=== PATIENT | female | born 2000 | race Caucasian/White ===

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

== ENCOUNTER 2022-07-18 00:51 | Observation (INO) ==
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
[2022-07-18] MEDS ORDERED: ACETAMINOPHEN 1,000 MG/100 ML BAG IV ONE (01:40)
[2022-07-18] MEDS ORDERED: SODIUM CHLORIDE 1,000 ML IV STA (01:41)
[2022-07-18 02:50] LABS: ALANINE AMINOTRANSFERASE 18.6 U/L (0-35); ALBUMIN 4.12 g/dL (3.5-5.0); ALKALINE PHOSPHATASE 115.3 U/L (38-126); ASPARTATE AMINO TRANSFERASE 17.5 U/L (14-36); BILIRUBIN,TOTAL 1.16 mg/dL (0.2-1.3); BLOOD UREA NITROGEN 11.3 mg/dL (7-17); CALCIUM 9.13 mg/dL (8.4-10.2); CARBON DIOXIDE 20.5 mmol/L (22-30.0); CREATININE 0.63 mg/dL (0.60-1.30); GLUCOSE 103.3 mg/dL (74-106); POTASSIUM 3.6 mmol/L (3.5-5.1); SODIUM 132.2 mmol/L (134.5-145); TOTAL PROTEIN 6.86 g/dL (6.3-8.2)
[2022-07-18 02:51] LABS: HEMATOCRIT 33.5 % (37.0-47.0); HEMOGLOBIN 11.5 g/dl (12.0-16.0); MEAN CORPUSCULAR HEMOGLOBIN 30.8 pg (27.0-31.0); MEAN CORPUSCULAR HGB CONC 34.3 (31.8-35.4); MEAN CORPUSCULAR VOLUME 89.8 fl (81.0-99.0); PLATELET COUNT 168 10^3/uL (140-440); RED BLOOD COUNT 3.73 10^6/ul (4.20-5.40)
[2022-07-18 03:27] LABS: MOLECULAR FLU A NEGATIVE BY NAAT (NEGATIVE); MOLECULAR FLU B NEGATIVE BY NAAT (NEGATIVE)
[2022-07-18 03:27] LABS: BILIRUBIN,URINE 1+ (NEGATIVE); CLARITY,URINE Clear (CLEAR); COLOR,URINE Yellow (YELLOW); GLUCOSE, URINE (UA) Negative (NEGATIVE); KETONES,URINE 3+ (NEGATIVE); LEUKOCYTE ESTERASE ,URINE Negative (NEGATIVE); NITRITE,URINE Negative (NEGATIVE); PH,URINE 5.5 (5-9); PROTEIN,URINE 1+ (NEGATIVE); URINE, BLOOD 2+ (NEGATIVE); UROBILINOGEN,URINE 0.2 (0.2)
[2022-07-18 03:37] LABS: URINE PREGNANCY TEST NEGATIVE (NEGATIVE)
[2022-07-18 03:37] LABS: SARS COV-2 RNA RAPID NAAT NEGATIVE (NEGATIVE)
[2022-07-18 03:54] LABS: PROTHROMBIN TIME 37.5 SEC (9.3-11.0)
[2022-07-18 03:59] LABS: BACTERIA,URINE 2+ (NOT PRESENT); MUCUS,URINE 4+ (NOT PRESENT); SQUAMOUS EPITHELIAL CELL,UR 20-30 (0-5); TRICHOMONAS,URINE MODERATE (NOT PRESENT)
[2022-07-18 04:01] LABS: ERYTHROCYTE SEDIMENTATION RATE 30 mm/hr (0-20)
[2022-07-18] MEDS ORDERED: MAXIPIME 2 GM/50 ML D5W 2 GM/50 ML BAG IV ONE (04:43)
--- NOTE | 2022-07-18 04:43 | DI ---
EXAM: PORTABLE CHEST HISTORY: Fever COMPARISON: Two-view chest 05/02/2020 FINDINGS: The cardiomediastinal silhouette is stable. There are low lung volumes without evidence o f active pulmonary disease. No acute osseous abnormalities. IMPRESSION: No evidence of active pulmonary disease.
[2022-07-18] MEDS ORDERED: BENADRYL IVP STA (05:26)
[2022-07-18] MEDS ORDERED: SOLU-MEDROL 40 MG IVP STA (05:26)
[2022-07-18] MEDS ORDERED: PEPCID IVP STA (05:26)
[2022-07-18] MEDS ORDERED: ROBITUSSIN DM SYRUP PO STA (06:31)
[2022-07-18 07:58] LABS: WHITE BLOOD COUNT 1.43 K/ul (4.6-10.2)
[2022-07-18 07:59] LABS: ANISOCYTOSIS NOT PRESENT (NOT PRESENT)
[2022-07-18] MEDS ORDERED: TYLENOL PO PRN (08:45)
[2022-07-18] MEDS ORDERED: VENTOLIN HFA (PER PUFF-WITH SPACER) IH PRN ×2 (08:49→11:00)
[2022-07-18] MEDS ORDERED: ALBUTEROL 0.083% NEB NEB PRN (08:49)
[2022-07-18] MEDS ORDERED: MIRALAX PO PRN (08:49)
[2022-07-18] MEDS ORDERED: COUMADIN PO SCH ×2 (09:00)
[2022-07-18] MEDS ORDERED: CALCIUM CARBONATE VITAMIN D3 PO SCH (09:00)
[2022-07-18] MEDS ORDERED: EPINEPHRINE 1 MG/ML AMP IM PRN (10:03)
[2022-07-18] MEDS: FOLIC ACID PO SCH (10:15)
[2022-07-18] MEDS: PREDNISONE PO SCH (10:15)
[2022-07-18] MEDS: MICRO-K CAP PO SCH (10:18)
[2022-07-18] MEDS: NAMENDA PO SCH ×2 (10:18→20:03)
[2022-07-18] MEDS: PLAQUENIL PO SCH (10:18)
[2022-07-18] MEDS: PROZAC PO SCH (10:19)
[2022-07-18] MEDS: SINGULAIR PO SCH (10:19)
[2022-07-18] MEDS: CALCIUM 500 + VIT D 5 MCG (200 IU) TABLET PO SCH ×3 (10:19→20:03)
[2022-07-18] MEDS: SODIUM CHLORIDE 1,000 ML IV SCH ×2 (10:26→22:46)
[2022-07-18] MEDS: LEVAQUIN 750 MG/150 ML D5W 750 MG/150 ML BAG IV SCH (10:26)
[2022-07-18] MEDS: NICODERM 14 MG TD SCH (10:42)
[2022-07-18] MEDS: PEPCID PO SCH ×2 (10:44→20:03)
[2022-07-18 11:03] VITALS: BMI 27.4
[2022-07-18] MEDS: FLAGYL 500 MG/100 ML 500 MG/100 ML BAG IV SCH ×3 (13:49→23:03)
[2022-07-18] MEDS: DANTROLENE 100 MG PO SCH ×2 (15:44→20:33)
[2022-07-18] MEDS: FLONASE NAS SCH ×2 (15:45→20:02)
[2022-07-18] MEDS: SYMBICORT 160-4.5 MCG INHALER IH SCH (20:02)
[2022-07-18] MEDS ORDERED: NON-FORMULARY MEDICATION (Fluticasone Propion-Salmeterol [Advair Diskus] 250-50 mcg/dose b IH SCH (21:00)
[2022-07-19] MEDS: FLAGYL 500 MG/100 ML 500 MG/100 ML BAG IV SCH ×4 (05:16→23:27)
[2022-07-19 05:36] LABS: HEMATOCRIT 34.5 % (37.0-47.0); HEMOGLOBIN 11.4 g/dl (12.0-16.0); MEAN CORPUSCULAR VOLUME 93.8 fl (81.0-99.0); PLATELET COUNT 208 10^3/uL (140-440); RDW COEFFICIENT OF VARIATION 13.2 % (11.6-14.8); RED BLOOD COUNT 3.68 10^6/ul (4.20-5.40)
[2022-07-19 05:38] LABS: WHITE BLOOD COUNT 1.85 K/ul (4.6-10.2)
[2022-07-19 05:39] LABS: ANISOCYTOSIS NOT PRESENT (NOT PRESENT)
[2022-07-19 05:43] LABS: ALANINE AMINOTRANSFERASE 18.2 U/L (0-35); ALBUMIN 3.93 g/dL (3.5-5.0); ALKALINE PHOSPHATASE 107.2 U/L (38-126); ASPARTATE AMINO TRANSFERASE 17.6 U/L (14-36); BILIRUBIN,TOTAL 0.48 mg/dL (0.2-1.3); BLOOD UREA NITROGEN 9.5 mg/dL (7-17); CALCIUM 9.24 mg/dL (8.4-10.2); CARBON DIOXIDE 23.4 mmol/L (22-30.0); CHLORIDE 108.7 mmol/L (98-107); CREATININE 0.57 mg/dL (0.60-1.30); GLUCOSE 103.7 mg/dL (74-106); POTASSIUM 3.43 mmol/L (3.5-5.1); SODIUM 140.2 mmol/L (134.5-145); TOTAL PROTEIN 6.66 g/dL (6.3-8.2)
[2022-07-19 05:50] LABS: PROTHROMBIN TIME 38.1 SEC (9.3-11.0)
--- NOTE | 2022-07-19 08:30 | PCM.PROG ---
Date Seen by Provider: 07/19/22 Time Seen by Provider: 08:15 Subjective: No further emesis. PO intake improving. Objective: Vitals: T=96.8 F, P=61, R=15, JY=227/32, LEO1=349 Chronically and acutely ill appearing. NAD. HEENT: [] Neck: [] Lungs: [] Clear. CVS: [] RRR. Abdomen: []Soft, nontender. Extremities: [] Neurological: [] Right hemiplegia. Alert. Skin: [] Lab/Tests/Diagnostic Imaging: [] (1) Neutropenia: Status: Acute Code(s): D70.9 - Neutropenia, unspecified SNOMED Code(s): 381889433 Assessment: WBC increased a bit today. (2) Chronic anticoagulation: Status: Acute Code(s): Z79.01 - intermodal owner operator truck driver (current) use of anticoagulants SNOMED Code(s): 120068785 Assessment: PT/INR still elevated. (3) Trichomonas infection: Status: Acute Code(s): A59.9 - Trichomoniasis, unspecified SNOMED Code(s): 38303100 (4) Acute viral syndrome: Status: Acute Code(s): B34.9 - Viral infection, unspecified SNOMED Code(s): 576332456 Plan: Hold coumadin. Continue antibiotics. On waiting list to be transferred to [facility].
[2022-07-19] MEDS ORDERED: NON-FORMULARY MEDICATION (Ferrous Sulfate [Ferosul] 325 mg (65 mg iron) tablet) PO SCH (08:49)
[2022-07-19] MEDS ORDERED: POTASSIUM CHLORIDE 20 MEQ VIAL- ADDITIVE ONLY 20 MEQ in SODIUM CHLORIDE 1,000 ML IV SCH (09:08)
[2022-07-19] MEDS ORDERED: FERROUS SULFATE PO SCH (09:22)
[2022-07-19] MEDS: LEVAQUIN 750 MG/150 ML D5W 750 MG/150 ML BAG IV SCH (09:39)
[2022-07-19] MEDS: PROZAC PO SCH (09:41)
[2022-07-19] MEDS: MICRO-K CAP PO SCH (09:41)
[2022-07-19] MEDS: PLAQUENIL PO SCH (09:42)
[2022-07-19] MEDS: PEPCID PO SCH ×2 (09:43→20:19)
[2022-07-19] MEDS: WELLBUTRIN XL PO SCH (09:43)
[2022-07-19] MEDS: FOLIC ACID PO SCH (09:43)
[2022-07-19] MEDS: CALCIUM 500 + VIT D 5 MCG (200 IU) TABLET PO SCH ×3 (09:44→20:18)
[2022-07-19] MEDS: SINGULAIR PO SCH (09:44)
[2022-07-19] MEDS: NAMENDA PO SCH ×2 (09:44→20:19)
[2022-07-19] MEDS: PREDNISONE PO SCH (09:45)
[2022-07-19] MEDS: NICODERM 14 MG TD SCH (09:46)
[2022-07-19] MEDS: DANTROLENE 100 MG PO SCH ×2 (09:46→20:26)
[2022-07-19] MEDS: SYMBICORT 160-4.5 MCG INHALER IH SCH ×2 (09:53→20:25)
[2022-07-19] MEDS: FLONASE NAS SCH ×2 (09:57→20:25)
[2022-07-19] MEDS: SODIUM CHLORIDE 0.9%-KCL 20 MEQ 1,000 ML IV SCH ×2 (11:28→21:55)
[2022-07-19] MEDS: SODIUM CHLORIDE 1,000 ML IV SCH (12:14)
[2022-07-20] MEDS: FLAGYL 500 MG/100 ML 500 MG/100 ML BAG IV SCH ×3 (05:21→17:09)
[2022-07-20 05:29] LABS: HEMATOCRIT 30.8 % (37.0-47.0); HEMOGLOBIN 10.2 g/dl (12.0-16.0); MEAN CORPUSCULAR HGB CONC 33.1 (31.8-35.4); MEAN CORPUSCULAR VOLUME 93.6 fl (81.0-99.0); PLATELET COUNT 195 10^3/uL (140-440); RDW COEFFICIENT OF VARIATION 13.4 % (11.6-14.8); RED BLOOD COUNT 3.29 10^6/ul (4.20-5.40)
[2022-07-20 05:37] LABS: PROTHROMBIN TIME 20.3 SEC (9.3-11.0)
[2022-07-20 05:41] LABS: ALANINE AMINOTRANSFERASE 15.2 U/L (0-35); ALBUMIN 3.28 g/dL (3.5-5.0); ALKALINE PHOSPHATASE 87.7 U/L (38-126); ASPARTATE AMINO TRANSFERASE 16.8 U/L (14-36); BILIRUBIN,TOTAL 0.39 mg/dL (0.2-1.3); BLOOD UREA NITROGEN 6.7 mg/dL (7-17); CALCIUM 8.51 mg/dL (8.4-10.2); CARBON DIOXIDE 24.2 mmol/L (22-30.0); CHLORIDE 108.6 mmol/L (98-107); CREATININE 0.58 mg/dL (0.60-1.30); GLUCOSE 90.7 mg/dL (74-106); POTASSIUM 3.77 mmol/L (3.5-5.1); SODIUM 137.3 mmol/L (134.5-145); TOTAL PROTEIN 5.77 g/dL (6.3-8.2)
[2022-07-20 05:52] LABS: WHITE BLOOD COUNT 1.45 K/ul (4.6-10.2)
[2022-07-20 05:53] LABS: ANISOCYTOSIS NOT PRESENT (NOT PRESENT)
[2022-07-20] MEDS: LEVAQUIN 750 MG/150 ML D5W 750 MG/150 ML BAG IV SCH (09:28)
[2022-07-20] MEDS: DANTROLENE 100 MG PO SCH ×2 (09:28→20:28)
[2022-07-20] MEDS: FLONASE NAS SCH ×2 (09:29→20:28)
[2022-07-20] MEDS: SYMBICORT 160-4.5 MCG INHALER IH SCH ×2 (09:29→20:27)
[2022-07-20] MEDS: FOLIC ACID PO SCH (09:36)
[2022-07-20] MEDS: PROZAC PO SCH (09:36)
[2022-07-20] MEDS: PREDNISONE PO SCH (09:36)
[2022-07-20] MEDS: MICRO-K CAP PO SCH (09:37)
[2022-07-20] MEDS: PLAQUENIL PO SCH (09:37)
[2022-07-20] MEDS: SINGULAIR PO SCH (09:38)
[2022-07-20] MEDS: WELLBUTRIN XL PO SCH (09:38)
[2022-07-20] MEDS: CALCIUM 500 + VIT D 5 MCG (200 IU) TABLET PO SCH ×3 (09:38→20:28)
[2022-07-20] MEDS: NICODERM 14 MG TD SCH (09:39)
[2022-07-20] MEDS: NAMENDA PO SCH ×2 (09:39→20:28)
[2022-07-20] MEDS: PEPCID PO SCH ×3 (10:55→17:11)
[2022-07-20] MEDS: SODIUM CHLORIDE 0.9%-KCL 20 MEQ 1,000 ML IV SCH (12:01)
--- NOTE | 2022-07-20 13:35 | PCM.PROG ---
Date Seen by Provider: 07/20/22 Time Seen by Provider: 13:32 Subjective: neutropenia, viral syndrome, trichomonas Objective: Vitals: T=97.6 F, P=76, R=16, VF=615/76, FDM3=348 HEENT: []conjunctiva clear Neck: []supple Lungs: [] no respiratory distress CVS: [] Abdomen: []nondistended Extremities: [] Neurological: []alert Skin: []pink Lab/Tests/Diagnostic Imaging: [] inr 2.0 (1) Neutropenia: Status: Acute Code(s): D70.9 - Neutropenia, unspecified SNOMED Code(s): 326894621 (2) Chronic anticoagulation: Status: Acute Code(s): Z79.01 - assisted (current) use of anticoagulants SNOMED Code(s): 675866095 (3) Trichomonas infection: Status: Acute Code(s): A59.9 - Trichomoniasis, unspecified SNOMED Code(s): 65344210 (4) Acute viral syndrome: Status: Acute Code(s): B34.9 - Viral infection, unspecified SNOMED Code(s): 314526904 Plan: still awaiting [facility] transfer, no recurrence of hives, unable to d/w pt trich infection w/ family present, restart coumadin
[2022-07-20] MEDS ORDERED: COUMADIN PO SCH ×2 (17:00)
[2022-07-21] MEDS: FLAGYL 500 MG/100 ML 500 MG/100 ML BAG IV SCH ×2 (00:05→05:37)
[2022-07-21] MEDS: SODIUM CHLORIDE 0.9%-KCL 20 MEQ 1,000 ML IV SCH (00:05)
[2022-07-21 01:37] VITALS: TEMP 97.6
[2022-07-21 05:25] LABS: HEMOGLOBIN 10.5 g/dl (12.0-16.0); MEAN CORPUSCULAR HEMOGLOBIN 30.5 pg (27.0-31.0); MEAN CORPUSCULAR HGB CONC 32.8 (31.8-35.4); PLATELET COUNT 197 10^3/uL (140-440); RDW COEFFICIENT OF VARIATION 13.5 % (11.6-14.8); RED BLOOD COUNT 3.44 10^6/ul (4.20-5.40)
[2022-07-21 05:35] LABS: PROTHROMBIN TIME 16.1 SEC (9.3-11.0)
[2022-07-21] MEDS: PEPCID PO SCH (05:37)
[2022-07-21 05:40] LABS: ANISOCYTOSIS NOT PRESENT (NOT PRESENT); WHITE BLOOD COUNT 1.88 K/ul (4.6-10.2)
[2022-07-21 05:48] VITALS: BP 123/75
[2022-07-21 05:52] LABS: ALANINE AMINOTRANSFERASE 14.5 U/L (0-35); ALBUMIN 3.35 g/dL (3.5-5.0); ALKALINE PHOSPHATASE 79.2 U/L (38-126); ASPARTATE AMINO TRANSFERASE 16.1 U/L (14-36); BILIRUBIN,TOTAL 0.38 mg/dL (0.2-1.3); BLOOD UREA NITROGEN 4.6 mg/dL (7-17); CALCIUM 8.66 mg/dL (8.4-10.2); CARBON DIOXIDE 24.8 mmol/L (22-30.0); CHLORIDE 106.7 mmol/L (98-107); CREATININE 0.59 mg/dL (0.60-1.30); GLUCOSE 86.7 mg/dL (74-106); POTASSIUM 3.49 mmol/L (3.5-5.1); SODIUM 137.8 mmol/L (134.5-145); TOTAL PROTEIN 5.7 g/dL (6.3-8.2)
[2022-07-21] MEDS: WELLBUTRIN XL PO SCH (08:48)
[2022-07-21] MEDS: CALCIUM 500 + VIT D 5 MCG (200 IU) TABLET PO SCH (08:48)
[2022-07-21] MEDS: PLAQUENIL PO SCH (08:48)
[2022-07-21] MEDS: NAMENDA PO SCH (08:48)
[2022-07-21] MEDS: PROZAC PO SCH (08:48)
[2022-07-21] MEDS: MICRO-K CAP PO SCH (08:48)
[2022-07-21] MEDS: PREDNISONE PO SCH (08:48)
[2022-07-21] MEDS: FOLIC ACID PO SCH (08:48)
[2022-07-21] MEDS: SYMBICORT 160-4.5 MCG INHALER IH SCH (08:49)
[2022-07-21] MEDS: FLONASE NAS SCH (08:49)
[2022-07-21] MEDS: SINGULAIR PO SCH (08:49)
[2022-07-21] MEDS: NICODERM 14 MG TD SCH (08:49)
[2022-07-21] MEDS: DANTROLENE 100 MG PO SCH (08:56)
[2022-07-21] MEDS ORDERED: LEVAQUIN PO SCH (09:00)
[2022-07-21] MEDS ORDERED: COUMADIN PO STA (09:26)
--- NOTE | 2022-07-21 09:33 | PCM.PROG ---
Date Seen by Provider: 07/21/22 Time Seen by Provider: 09:00 Subjective: Patient feeling much better. No nausea or vomiting. Appetite good. Objective: Vitals: T=97.6 F, P=83, R=18, LD=153/75, SPO2=98 Patient in good spirits. Appears well. HEENT: [] Neck: [] Lungs: [] Clear. BS equal. CVS: [] RRR Abdomen: []Soft, nontender, nondistended. No CVA tenderness. Extremities: [] Neurological: [] Skin: [] Lab/Tests/Diagnostic Imaging: [] (1) Neutropenia: Status: Acute Code(s): D70.9 - Neutropenia, unspecified SNOMED Code(s): 404576677 Assessment: Stable. (2) Chronic anticoagulation: Status: Acute Code(s): Z79.01 - terminal operator (current) use of anticoagulants SNOMED Code(s): 179287373 Assessment: PT/INR decreased. (3) Trichomonas infection: Status: Acute Code(s): A59.9 - Trichomoniasis, unspecified SNOMED Code(s): 39746475 Assessment: Cleared. (4) Acute viral syndrome: Status: Acute Code(s): B34.9 - Viral infection, unspecified SNOMED Code(s): 361211960 Plan: Discharge on levaquin. Resume coumadin. Follow up with [facility] within one week.
--- NOTE | 2022-07-21 09:43 | PCM.DC ---
Final Diagnosis: acute viral syndrome neutropenia trichomonas infection nausea and vomiting Physical Exam Appearance: Well-appearing, No pain distress, Well-nourished and Other (Patient alert and conversant. Good spirits.) Ill-appearing: None Pain Distress: None Eyes: Conjunctiva clear ENT: Nose normal and Oropharynx normal Neck: Supple Respiratory: Airway patent, Breath sounds clear and Breath sounds equal Cardiovascular: RRR, No rub and No murmur GI/: Soft, Nontender, No masses and Bowel sounds normal Musculoskeletal: No edema Skin: Warm, Dry and Normal color Neurological: Alert and Oriented Psychiatric: Affect appropriate and Mood appropriate (1) Neutropenia: Status: Acute Code(s): D70.9 - Neutropenia, unspecified SNOMED Code(s): 419827554 (2) Chronic anticoagulation: Status: Acute Code(s): Z79.01 - terminal manager (current) use of anticoagulants SNOMED Code(s): 383430362 (3) Trichomonas infection: Status: Acute Code(s): A59.9 - Trichomoniasis, unspecified SNOMED Code(s): 53060129 (4) Acute viral syndrome: Status: Acute Code(s): B34.9 - Viral infection, unspecified SNOMED Code(s): 735380234 Reason for Hospitalization: Patient admitted with neutropenia, acute viral syndrome, nausea and vomiting. Prognosis/Condition at Discharge: Condition at discharge was stable. Medications at Discharge: Patient discharged on levaquin 500mg daily in addition to the same medications as at admission. Education Provided to Patient and Family: Viral syndrome Follow-ups: Folow up with [facility] care providers within one week. Discharge Disposition: Home Hospital Course: Patient admitted with neutropenia, nausea and vomiting, acute viral syndrome and trichomonas infection. She was treated with IV antibiotics. Her coumadin was held for elevated PT/INR. She received IV fluis and zofran until she could resume oral intake. WBC remained low but was stable. Plan: Follow up with [facility] within one week.
[2022-07-22] MEDS ORDERED: FERROUS SULFATE PO SCH (09:00)
== END 2022-07-21 10:10 | disposition home or self-care (01) ==
LOC: ED 00:51 → MEDSURG A 00:51
PROVIDERS: ADMIT Emergency Medicine Emergency Medical Services; ATTEND Surgery
DX: D70.9 Neutropenia, unspecified; I69.30 Unspecified sequelae of cerebral infarction; R50.9 Fever, unspecified; R50.81 Fever presenting with conditions classified elsewhere; R11.2 Nausea with vomiting, unspecified; Z51.81 Encounter for therapeutic drug level monitoring; A59.9 Trichomoniasis, unspecified; Z87.891 Personal history of nicotine dependence; D68.61 Antiphospholipid syndrome; B34.9 Viral infection, unspecified; Z79.01 Long term (current) use of anticoagulants; M32.9 Systemic lupus erythematosus, unspecified; Z79.899 Other long term (current) drug therapy; N39.0 Urinary tract infection, site not specified; Z20.822 Contact with and (suspected) exposure to COVID-19